=== PATIENT | male | born 1990 ===

== ENCOUNTER 2025-01-22 14:44 | Emergency (ER) | payer MEDICAID ==
[~2025-01-22] VITALS: Ht 160 cm; Wt 75.0 kg
[2025-01-22 14:47] VITALS: TEMP 98.1
[2025-01-22] MEDS: TraMADol HCL 50 MG TABLET PO ONE (15:11)
[2025-01-22] MEDS: ACETAMINOPHEN 325 MG TABLET PO ONE (15:14)
[2025-01-22] MEDS: LIDOCAINE 1% 10 ML VIAL SQ ONE (15:14)
[2025-01-22] MEDS ORDERED: DOXY50 PO (15:38)
[2025-01-22] MEDS: DOXYCYCLINE HYCLATE 100 MG TABLET PO ONE (15:40)
[2025-01-22 15:46] VITALS: BP 119/75; PULSE 81; RESP 18; O2SAT 98
== END 2025-01-22 15:47 | disposition home or self-care (01) ==
LOC: EMS 14:44
DX: L02.31 Cutaneous abscess of buttock (principal)
CPT/HCPCS: 99283; 10060; J3490